=== PATIENT | male | born 1955 | race Two or more races ===

== ENCOUNTER 2025-04-29 13:48 | Inpatient (IN) | payer MEDICARE, MEDICAID ==
[2025-04-28 20:00] VITALS: BP 138/84; PULSE 91; RESP 18; TEMP 37
[~2025-04-29] VITALS: Ht 175.3 cm; Wt 90.8 kg
[2025-04-29] MEDS ORDERED: LEVETIRACETAM 1,000MG in NACL 100ML PREMIX IV SCH (15:00)
[2025-04-29] MEDS: SODIUM CHLORIDE 0.9% (SEPSIS BOLUS) IV ONE (15:34)
[2025-04-29 15:50] LABS: CLARITY URINE CLEAR (CLEAR); COLOR URINE DARK YELLOW (YELLOW); PH URINE 6.0 (4.5-8.0); SPECIFIC GRAVITY URINE 1.029 (1.005-1.030)
[2025-04-29 15:51] LABS: GLUCOSE URINE NEGATIVE (NEGATIVE); KETONES URINE TRACE (NEGATIVE); LEUKOCYTE ESTERASE URINE NEGATIVE (NEGATIVE); NITRITE URINE NEGATIVE (NEGATIVE); OCCULT BLOOD URINE NEGATIVE (NEGATIVE); PROTEIN URINE 1+ (NEGATIVE); UROBILINOGEN URINE 0.2 E.U./dL (0.2-1.0)
[2025-04-29] MEDS: LEVETIRACETAM 1000MG PREMIX 100 ML IV SCH (15:52)
[2025-04-29 15:57] LABS: BASOPHILS % 0.3 % (0.0-2.0); EOSINOPHILS % 0.0 % (0.0-5.0); HEMATOCRIT. 41.2 % (42.0-52.0); HEMOGLOBIN. 13.9 g/dL (14.0-18.0); LYMPHOCYTES % 11.3 % (20.0-50.0); MEAN PLATELET VOLUME 8.6 fl (7.4-10.4); MONOCYTES % 7.6 % (2.0-8.0); NEUTROPHILS % 80.8 % (40.0-76.0); PLATELET 146 x1000/uL (130-400); RED BLOOD CELL COUNT 4.56 mill/uL (4.7-6.1); RED CELL DISTRIBUTION WIDTH 13.7 % (11.6-14.6)
[2025-04-29 15:57] LABS: *AMPHETAMINES SCREEN URINE NEGATIVE (NEGATIVE); *BARBITURATES SCREEN URINE NEGATIVE (NEGATIVE); *BENZODIAZEPINES SCREEN URINE NEGATIVE (NEGATIVE); *COCAINE SCREEN URINE NEGATIVE (NEGATIVE); CANNABINOID URINE SCREEN NEGATIVE (NEGATIVE); ECSTASY MDMA SCREEN URINE NEGATIVE (NEGATIVE); METHADONE URINE SCREEN NEGATIVE (NEGATIVE); OPIATES URINE SCREEN NEGATIVE (NEGATIVE); PHENCYCLIDINE URINE SCREEN NEGATIVE (NEGATIVE)
[2025-04-29 16:01] LABS: RBC URINE 0-2 /hpf (0-2); WBC URINE 0-2 /hpf (0-2)
[2025-04-29 16:02] LABS: BACTERIA URINE TRACE; SQUAMOUS EPITHELIAL CELL URINE RARE /lpf (RARE/1+)
[2025-04-29] MEDS: PIPERACILLIN/TAZO 3.375G/50ML 50 ML IV ONE (16:04)
[2025-04-29] MEDS: ACETAMINOPHEN 1000MG/100ML 100 ML IV ONE (16:04)
[2025-04-29 16:06] LABS: CREATININE 1.0 mg/dL (0.6-1.3); PHENYTOIN 6.4 ug/mL (10-20)
[2025-04-29 16:07] LABS: ETHANOL BLOOD < 10 mg/dL (<10); TROPONIN I HIGH SENSITIVITY < 4 ng/L (3.0-53); UREA NITROGEN BLOOD 19 mg/dL (9-23)
[2025-04-29 16:08] LABS: ASPARTATE AMINOTRANSFERASE 90 IU/L (<34)
[2025-04-29 16:09] LABS: BILIRUBIN DIRECT 0.1 mg/dL (<=3.0); BILIRUBIN TOTAL 0.3 mg/dL (0.1-1.0); PROTEIN TOTAL 6.8 g/dL (6.0-8.3)
[2025-04-29 16:16] LABS: VALPROIC ACID < 3.0 ug/mL (50-100)
[2025-04-29] MEDS: VANCOMYCIN 1G PREMIX 200 ML IV ONE (17:08)
[2025-04-29] MEDS ORDERED: LORAZEPAM 2MG/ML UD SYRINGE IV PRN (17:45)
[2025-04-29] MEDS ORDERED: IPRATROPIUM/ALBUTEROL 0.5-3(2.5)MG/3ML NEB HHN PRN (17:45)
[2025-04-29] MEDS ORDERED: ACETAMINOPHEN 325MG TABLET PO PRN ×2 (17:45)
[2025-04-29] MEDS ORDERED: CLONIDINE 0.1MG TABLET PO PRN (17:45)
[2025-04-29] MEDS ORDERED: ONDANSETRON HCL 4MG/2ML INJ IV PRN (17:45)
[2025-04-29] MEDS ORDERED: DOCUSATE SODIUM 100MG CAPSULE PO PRN (17:45)
[2025-04-29 18:00] VITALS: BP 150/89; PULSE 115; RESP 20; TEMP 36.1; O2SAT 100
[2025-04-29] MEDS ORDERED: DOCU-422 PO (19:37)
[2025-04-29] MEDS ORDERED: MULT-1318 PO (19:37)
[2025-04-29] MEDS ORDERED: ASCO500T20 PO (19:37)
[2025-04-29 20:00] VITALS: BP 138/84; PULSE 91; RESP 19; TEMP 37; O2SAT 97
[2025-04-29] MEDS: ENOXAPARIN 40MG/0.4ML SYR SUBCUT SCH (21:08)
[2025-04-29] MEDS: LEVETIRACETAM 500MG PREMIX 100 ML IV SCH (21:08)
[2025-04-29] MEDS: DILTIAZEM HCL 30MG TABLET PO SCH (21:12)
[2025-04-29 22:42] LABS: CREATINE KINASE MB FRACTION 3.0 ng/mL (0.5-3.6); TROPONIN I HIGH SENSITIVITY 6 ng/L (3.0-53)
[2025-04-30] VITALS (7 sets, daily range): BP systolic 112–147; BP diastolic 61–102; PULSE 64–102; RESP 16–20; TEMP 35.8–37.4; O2SAT 94–100
[2025-04-30] MEDS: PANTOPRAZOLE SODIUM 40 MG/VIAL IV SCH (08:35)
[2025-05-01] VITALS (8 sets, daily range): BP systolic 140–157; BP diastolic 77–88; PULSE 64–82; RESP 18–19; TEMP 36.5–37; O2SAT 94–99
[2025-05-01 08:14] LABS: BASOPHILS % 0.5 % (0.0-2.0); EOSINOPHILS % 0.3 % (0.0-5.0); HEMATOCRIT. 39.7 % (42.0-52.0); HEMOGLOBIN. 13.4 g/dL (14.0-18.0); LYMPHOCYTES % 23.8 % (20.0-50.0); MEAN PLATELET VOLUME 9.0 fl (7.4-10.4); MONOCYTES % 12.6 % (2.0-8.0); NEUTROPHILS % 62.8 % (40.0-76.0); PLATELET 132 x1000/uL (130-400); RED BLOOD CELL COUNT 4.39 mill/uL (4.7-6.1); RED CELL DISTRIBUTION WIDTH 13.7 % (11.6-14.6)
[2025-05-01 08:43] LABS: CREATININE 0.8 mg/dL (0.6-1.3)
[2025-05-01 08:44] LABS: UREA NITROGEN BLOOD 14 mg/dL (9-23)
[2025-05-01 08:45] LABS: ASPARTATE AMINOTRANSFERASE 53 IU/L (<34)
[2025-05-01 08:46] LABS: BILIRUBIN TOTAL 0.4 mg/dL (0.1-1.0); PROTEIN TOTAL 6.2 g/dL (6.0-8.3)
[2025-05-01] MEDS ORDERED: KEPP500 MT (15:13)
[2025-05-02] VITALS: BP 147/90; PULSE 67; RESP 19; TEMP 36.6; O2SAT 98
[2025-05-02 04:00] VITALS: BP 147/96; PULSE 65; RESP 19; TEMP 36.6; O2SAT 96
[2025-05-02 07:40] VITALS: O2SAT 97
[2025-05-02 07:55] VITALS: BP 147/88; PULSE 75; RESP 19; TEMP 36.8; O2SAT 97
[2025-05-02 11:53] VITALS: BP 144/88; PULSE 66; RESP 18; TEMP 36.9; O2SAT 99
== END 2025-05-02 14:10 | DRG 101 ==
LOC: ER 13:48 → EDBEDREQ 16:29 → ENRESERV 16:57 → 7WST 17:10
PROVIDERS: ADMIT Internal Medicine; ATTEND Internal Medicine
DX: R56.9 Unspecified convulsions (principal); N39.0 Urinary tract infection, site not specified; G93.49 Other encephalopathy; I10 Essential (primary) hypertension; E66.9 Obesity, unspecified; E78.00 Pure hypercholesterolemia, unspecified; R74.01 Elevation of levels of liver transaminase levels; Z86.73 Personal history of transient ischemic attack (TIA), and cerebral infarction without residual deficits; Z68.29 Body mass index [BMI] 29.0-29.9, adult; F20.9 Schizophrenia, unspecified
CPT/HCPCS: 36415; 71045; 80048; 80053; 80076; 80165; 80185; 80305; 80320; 81003; 82550; 82553; 83605; 84145; 84484; 85025; 93005; 99291; J1650; J1953; J2470; J2543; J3370; J7030; G0480; J0131